=== PATIENT | female | born 1955 ===

== ENCOUNTER 2018-10-18 11:37 | Emergency (ER) | payer OTHER ==
[2018-10-18 11:54] VITALS: BP 122/74; PULSE 85; TEMP 97.4; O2SAT 98
--- NOTE | 2018-10-18 12:56 | C.PDOC ---
History Of Present Illness 63 y/o female presents to the ED complaining of upper back pain developing since 4 days ago. Patient states she awoke Tuesday with severe pain and stiffness in the upper back, and was barely able to sit up and move. She saw her PMD 2 days ago, was diagnosed with a spasm, and discharged home with a muscle relaxant. Patient reports taking the muscle relaxant nightly with minimal relief. Patient also has tried Aleve, which provides temporary relief of the pain. She reports she had a dry cough for weeks, which is resolving since the patient was instructed to discontinue her Lisinopril. Otherwise she denies any fever, chills, chest pain, nausea, vomiting, abdominal pain, dysuria, or bowel/bladder incontinence. Pain worsened today, prompting patient to come to the ED. Time Seen by Provider: 10/18/18 12:09 Chief Complaint (Nursing): Back Pain History Per: Patient History/Exam Limitations: no limitations Onset/Duration Of Symptoms: Days (x 5) Current Symptoms Are (Timing): Still Present Quality Of Discomfort: "Pain" Severity: Severe Exacerbating Factor(s): Movement Past Medical History Reviewed: Historical Data, Nursing Documentation, Vital Signs Vital Signs: Last Vital Signs Temp 97.4 F L 10/18/18 11:47 Pulse 85 10/18/18 11:47 Resp 18 10/18/18 11:47 BP 122/74 10/18/18 11:47 Pulse Ox 98 10/18/18 11:47 - Medical History PMH: Cardia Arrhythmia, HTN Family History: States: No Known Family Hx - Social History Hx Alcohol Use: Yes Hx Substance Use: No - Immunization History Hx Tetanus Toxoid Vaccination: No Hx Influenza Vaccination: No Hx Pneumococcal Vaccination: No Review Of Systems Except As Marked, All Systems Reviewed And Found Negative. Constitutional: Negative for: Fever, Chills Cardiovascular: Negative for: Chest Pain, Palpitations Respiratory: Positive for: Cough. Negative for: Shortness of Breath Gastrointestinal: Negative for: Nausea, Vomiting, Abdominal Pain, Diarrhea Genitourinary: Negative for: Dysuria, Frequency, Incontinence Musculoskeletal: Positive for: Back Pain Neurological: Negative for: Weakness, Numbness Physical Exam - Physical Exam Appears: Non-toxic, No Acute Distress Skin: Warm, Dry, No Rash Head: Atraumatic, Normacephalic Eye(s): bilateral: Normal Inspection, PERRL, EOMI Oral Mucosa: Moist Neck: Normal ROM (full painless ROM of neck), No Midline Cervical Tenderness, No Paracervical Tenderness, Supple Chest: Symmetrical Cardiovascular: Rhythm Regular, No Murmur Respiratory: Normal Breath Sounds, No Accessory Muscle Use Back: No Vertebral Tenderness, Muscle Spasm (Bilateral parathoracic muscle spasm and tenderness) Extremity: Bilateral: Atraumatic, Normal Color And Temperature Neurological/Psych: Oriented x3, Normal Speech ED Course And Treatment O2 Sat by Pulse Oximetry: 98 (RA) Pulse Ox Interpretation: Normal Medical Decision Making Medical Decision Making: Plan: - 30 mg IM Toradol - 40 mg PO Prednisone - Reassess On re-examination patient is resting comfortably on stretcher. She remains afebrile, neck is supple, lungs are clear and abdomen is non-tender. Patient reports feeling better and wants to go home. She is stable for discharge, advised to take medications as written and follow up with her PMD as scheduled. Disposition Counseled Patient/Family Regarding: Diagnosis, Need For Followup, Rx Given - Disposition Referrals: Jose Avila MD [Non-Staff] - Disposition: HOME/ ROUTINE Disposition Time: 12:59 Condition: GOOD Additional Instructions: Follow up with the medical doctor within 1-2 days. return if worsened. Prescriptions: Lidocaine 5% [Lidoderm] 1 each TP DAILY #10 patch Naproxen 375 mg PO BID #20 tablet Instructions: Radiculopathy (DC), Cervical Muscle Strain (DC) Forms: [facility] (Japanese) - Clinical Impression Clinical Impression: Cervical radiculopathy - PA / PORT ENGINEER / Resident Statement MD/DO has reviewed & agrees with the documentation as recorded. - Scribe Statement The provider has reviewed the documentation as recorded by the Scribe Belinda Norton All medical record entries made by the Vigneshibe were at my direction and personally dictated by me. I have reviewed the chart and agree that the record accurately reflects my personal performance of the history, physical exam, medical decision making, and the department course for this patient. I have also personally directed, reviewed, and agree with the discharge instructions and disposition.
[2018-10-18 13:21] VITALS: RESP 20
== END 2018-10-18 13:21 | disposition home or self-care (01) ==
LOC: C.ER 11:37
DX: M54.12 Radiculopathy, cervical region (principal); I10 Essential (primary) hypertension
CPT/HCPCS: 96372; 99285; J1885